=== PATIENT | male | born 1960 | race Two or more races ===

== ENCOUNTER 2021-12-14 10:55 | Day surgery (SDC) | payer MEDICAID ==
[~2021-12-14] VITALS: Ht 165.1 cm; Wt 56.2 kg
[2021-12-14] VITALS (15 sets, daily range): BP systolic 130–167; BP diastolic 61–88
[2021-12-14] MEDS ORDERED: Prednisone PO (11:24)
[2021-12-14] MEDS ORDERED: HYDR-4069 PO (11:24)
[2021-12-14] MEDS ORDERED: normal saline 1000ml 1,000 ML IV PRN (11:25)
[2021-12-14] MEDS ORDERED: FURO-150 PO (11:26)
[2021-12-14] MEDS ORDERED: drisdol PO (11:26)
[2021-12-14] MEDS ORDERED: SODI650T29 PO (11:26)
[2021-12-14 11:49] LABS: BASOPHILS # (AUTO) 0.1 X10'3 (0-0.2); BASOPHILS % (AUTO) 0.8 % (0-1); EOSINOPHILS # (AUTO) 0.2 X10'3 (0-0.9); EOSINOPHILS % (AUTO) 1.7 % (0-6); HEMATOCRIT 30.2 % (42.0-52.0); LYMPHOCYTES # (AUTO) 1.8 X10'3 (1.1-4.8); LYMPHOCYTES % (AUTO) 16.5 % (21-51); MEAN CORPUSCULAR HEMOGLOBIN 27.6 PG (27.0-31.0); MEAN CORPUSCULAR VOLUME 83.7 FL (78-98); MEAN PLATELET VOLUME 6.7 FL (7.4-10.4); MONOCYTES # (AUTO) 0.8 X10'3 (0-0.9); MONOCYTES % (AUTO) 7.7 % (2-12); NEUTROPHILS % (AUTO) 73.3 % (42-75); PLATELET COUNT 250 X10'3 (140-440); RED BLOOD COUNT 3.61 X10'6 (4.70-6.10); RED CELL DISTRIBUTION WIDTH 17.4 % (11.5-14.5)
[2021-12-14 11:56] LABS: ANION GAP 14 (8-16); BLOOD UREA NITROGEN 37 MG/DL (7-18); BUN/CREATININE RATIO 8.4 (5.4-32.0); CALCIUM 9.1 MG/DL (8.5-10.1); CHLORIDE 108 MMOL/L (99-107); CREATININE 4.42 MG/DL (0.60-1.10); GLUCOSE 107 MG/DL (70-104); POTASSIUM 4.3 MMOL/L (3.5-5.1); SODIUM 141 MMOL/L (135-145); eGFR 14 ML/MIN
[2021-12-14] MEDS ORDERED: gelatin sponge, absorbable (Gelfoam 12-7MM) sponge TP ONE (12:35)
[2021-12-14] MEDS ORDERED: fentaNYL/PF 50MCG/1 ML 2ML syringe ONE (12:36)
[2021-12-14] MEDS ORDERED: midazolam 1 mg/ML 2ml injection ONE (12:36)
[2021-12-14] MEDS ORDERED: sodium chloride 0.45% 1,000 ML IV SCH (13:25)
--- NOTE | 2021-12-14 13:45 | NUR ---
Spoke with Dr. Arreola to clarify discharge instructions and IV solution. Ok to continue with NS and DC 1/2 NS. No need to call prior to discharge. If Vital signs stable and no s/s bleeding, patient may be discharge home at 1630.
== END 2021-12-14 16:25 | disposition home or self-care (01) ==
LOC: SSTAY O 10:55
PROVIDERS: ATTEND Radiology Vascular & Interventional Radiology
DX: R80.9 Proteinuria, unspecified (principal); Z79.01 Long term (current) use of anticoagulants; N19 Unspecified kidney failure; I10 Essential (primary) hypertension; E11.9 Type 2 diabetes mellitus without complications; Z79.899 Other long term (current) drug therapy; Z98.890 Other specified postprocedural states; Z83.3 Family history of diabetes mellitus
CPT/HCPCS: 36415; 50200; 77012; 80048; 82948; 85025; 85610; 99152; 99153; J2250; J3010; J7030; A4615

== ENCOUNTER 2022-03-07 08:42 | Day surgery (SDC) | payer MEDICAID ==
[~2022-03-07] VITALS: Ht 165.1 cm; Wt 56.2 kg
[2022-03-07] VITALS (7 sets, daily range): BP systolic 116–142; BP diastolic 64–84
[~2022-03-07 08:42] MED LIST: AMLO10TA13 PO; COLC0.6C3 PO; DOCUMENT DATE & TIME OF BETA-BLOCKER PO ONE; FURO-150 PO; HYDR-4069 PO; LABE300T4 PO; SODI650T29 PO; ceFAZolin inj. 2,000 MG in dextrose 5%-water 100 ML IV ONE; famotidine 20mg tablet PO ONE; ringers solution, lacted 1,000 ML IV SCH
[2022-03-07 10:00] LABS: BASOPHILS # (AUTO) 0.1 X10'3 (0-0.2); EOSINOPHILS # (AUTO) 0.1 X10'3 (0-0.9); EOSINOPHILS % (AUTO) 1.3 % (0-6); HEMATOCRIT 23.9 % (42.0-52.0); HEMOGLOBIN 7.8 g/dl (14.0-17.9); LYMPHOCYTES # (AUTO) 1.9 X10'3 (1.1-4.8); LYMPHOCYTES % (AUTO) 19.6 % (21-51); MEAN CORPUSCULAR HEMOGLOBIN 29.3 PG (27.0-31.0); MEAN CORPUSCULAR HGB CONC 32.4 g/dL (33.0-36.5); MEAN CORPUSCULAR VOLUME 90.4 FL (78-98); MEAN PLATELET VOLUME 7.4 FL (7.4-10.4); MONOCYTES # (AUTO) 0.9 X10'3 (0-0.9); NEUTROPHILS # (AUTO) 6.6 X10'3 (1.8-7.7); NEUTROPHILS % (AUTO) 69.1 % (42-75); PLATELET COUNT 225 X10'3 (140-440); RED BLOOD COUNT 2.65 X10'6 (4.70-6.10); RED CELL DISTRIBUTION WIDTH 17.6 % (11.5-14.5); WHITE BLOOD COUNT 9.5 X10'3 (4.5-11.0)
[2022-03-07 10:17] LABS: ALANINE AMINOTRANSFERASE 12 U/L (12-78); ALBUMIN/GLOBULIN RATIO 0.8 (1.1-1.5); ALKALINE PHOSPHATASE 76 IU/L (46-116); ANION GAP 16 (8-16); ASPARTATE AMINO TRANSFERASE 12 U/L (10-37); BILIRUBIN,TOTAL 0.3 MG/DL (0.1-1.0); BLOOD UREA NITROGEN 50 MG/DL (7-18); BUN/CREATININE RATIO 7.8 (5.4-32.0); CALCIUM 9.1 MG/DL (8.5-10.1); CHLORIDE 105 MMOL/L (99-107); CREATININE 6.38 MG/DL (0.60-1.10); GLUCOSE 115 MG/DL (70-104); POTASSIUM 3.8 MMOL/L (3.5-5.1); SODIUM 141 MMOL/L (135-145); TOTAL CARBON DIOXIDE 20.3 MMOL/L (24-32); eGFR 9 ML/MIN
[2022-03-07] MEDS ORDERED: BUPIVAcaine/PF 2.5 mg/ml (0.25%) 30ml vial ONE (10:56)
[2022-03-07] MEDS ORDERED: heparin 10,000 units/1 ML INJ ONE (10:56)
[2022-03-07] MEDS ORDERED: LIDOcaine 1% 30ml preserv. free vial ONE (10:56)
[2022-03-07] MEDS ORDERED: fentaNYL/PF 50MCG/1 ML 2ML syringe ONE (11:35)
[2022-03-07] MEDS ORDERED: propofol inj 20 ML IV ONE (11:35)
[2022-03-07] MEDS ORDERED: midazolam 1 mg/ML 2ml injection ONE (11:35)
[2022-03-07] MEDS ORDERED: sevoflurane 250ml liquid IH ONE (11:38)
[2022-03-07] MEDS ORDERED: proCHLORperazine 10 MG/2 ml inj IV PRN (11:40)
[2022-03-07] MEDS ORDERED: morphine 2 MG/ML inj. syringe IV PRN (11:40)
[2022-03-07] MEDS ORDERED: ringers solution, lacted 1,000 ML IV SCH (11:40)
[2022-03-07] MEDS ORDERED: ondansetron/PF 4mg/2ml inj IV PRN (11:40)
[2022-03-07] MEDS ORDERED: morphine 4 MG/ML inj SYRINge IV PRN (11:40)
[2022-03-07] MEDS ORDERED: meperidine/PF 25mg/ml syringe IV PRN ×3 (11:40)
--- NOTE | 2022-03-07 12:25 | NUR ---
patient a&ox4, norco given for pain, v/s wnl, csm intact, scd off, dermabond surgical clear clean and dry left forarm, 20g rue d/c. patient d/c home with all belongings and verbalized understanding of d/c instructions. his son gave transport home. Addendum: 03/07/22 at 1717 by Luther Garcia RN WRONG TIME
--- NOTE | 2022-03-07 12:45 | NUR ---
Received from OR via , accompanied by Anesthesiologist and report given by Anesthesiolgist. patient waking up denies pain, v/s wnl, csm intact, scd on, dermabond surgical clear clean and dry left forarm, 20g rue
[2022-03-07] MEDS ORDERED: HYDROcodone/acetaminophen 10/325mg tab PO ONE (13:20)
--- NOTE | 2022-03-07 13:25 | NUR ---
patient a&ox4, norco given for pain, v/s wnl, csm intact, scd off, dermabond surgical clear clean and dry left forarm, 20g rue d/c. patient d/c home with all belongings and verbalized understanding of d/c instructions. his son gave transport home.
== END 2022-03-07 13:25 | disposition home or self-care (01) ==
LOC: PAS 08:42
PROVIDERS: ATTEND Surgery
DX: N19 Unspecified kidney failure (principal); E11.9 Type 2 diabetes mellitus without complications; M19.90 Unspecified osteoarthritis, unspecified site; M10.9 Gout, unspecified; I10 Essential (primary) hypertension; Z87.891 Personal history of nicotine dependence; Z72.89 Other problems related to lifestyle; Z79.899 Other long term (current) drug therapy; Z98.890 Other specified postprocedural states
CPT/HCPCS: 36415; 36821; 80053; 82948; 85025; 93005; J0690; J1644; J2250; J2704; J3010; J3490; J7030; J7040; J7060; J7120; Z7506; Z7508; Z7512; A4215; A4618; A7000

== ENCOUNTER 2022-05-04 06:23 | Day surgery (SDC) | payer MEDICAID ==
[~2022-05-04] VITALS: Ht 165.1 cm; Wt 59.0 kg
[~2022-05-04 06:23] MED LIST changes: -DOCUMENT DATE & TIME OF BETA-BLOCKER PO ONE; -ceFAZolin inj. 2,000 MG in dextrose 5%-water 100 ML IV ONE; -famotidine 20mg tablet PO ONE; -ringers solution, lacted 1,000 ML IV SCH
[2022-05-04] MEDS ORDERED: normal saline 1000ml 1,000 ML IV PRN (06:50)
[2022-05-04] MEDS ORDERED: DOCU-148 PO (06:55)
[2022-05-04] MEDS ORDERED: HYDR-3965 PO (06:56)
[2022-05-04 07:00] VITALS: BP 148/73
[2022-05-04] MEDS ORDERED: METO-411 PO (07:00)
[2022-05-04] MEDS ORDERED: VITAMIN D (07:02)
[2022-05-04] MEDS ORDERED: ONDA4TAB12 PO (07:04)
[2022-05-04 07:20] LABS: BASOPHILS # (AUTO) 0.1 X10'3 (0-0.2); BASOPHILS % (AUTO) 0.5 % (0-1); EOSINOPHILS # (AUTO) 0.1 X10'3 (0-0.9); EOSINOPHILS % (AUTO) 0.9 % (0-6); HEMATOCRIT 23.9 % (42.0-52.0); HEMOGLOBIN 7.6 g/dl (14.0-17.9); LYMPHOCYTES # (AUTO) 1.6 X10'3 (1.1-4.8); LYMPHOCYTES % (AUTO) 13.7 % (21-51); MEAN CORPUSCULAR HGB CONC 31.7 g/dL (33.0-36.5); MEAN CORPUSCULAR VOLUME 88.2 FL (78-98); MONOCYTES # (AUTO) 0.9 X10'3 (0-0.9); MONOCYTES % (AUTO) 7.3 % (2-12); NEUTROPHILS # (AUTO) 9.1 X10'3 (1.8-7.7); NEUTROPHILS % (AUTO) 77.6 % (42-75); PLATELET COUNT 245 X10'3 (140-440); RED BLOOD COUNT 2.71 X10'6 (4.70-6.10); RED CELL DISTRIBUTION WIDTH 15.7 % (11.5-14.5); WHITE BLOOD COUNT 11.7 X10'3 (4.5-11.0)
[2022-05-04 07:31] LABS: ANION GAP 15 (8-16); BLOOD UREA NITROGEN 56 MG/DL (7-18); BUN/CREATININE RATIO 9.8 (5.4-32.0); CALCIUM 8.3 MG/DL (8.5-10.1); CHLORIDE 106 MMOL/L (99-107); CREATININE 5.73 MG/DL (0.60-1.10); GLUCOSE 131 MG/DL (70-104); POTASSIUM 4.6 MMOL/L (3.5-5.1); SODIUM 138 MMOL/L (135-145); TOTAL CARBON DIOXIDE 17.1 MMOL/L (24-32); eGFR 10 ML/MIN
[2022-05-04] MEDS ORDERED: heparin 1,000 UNITS/NS 500ml 500 ML ONE ×2 (08:24→09:45)
[2022-05-04] MEDS ORDERED: midazolam 1 mg/ML 2ml injection ONE ×2 (08:24→09:37)
[2022-05-04] MEDS ORDERED: FENTANYL CITRATE/PF 50 MCG/1 ML VIAL ONE ×3 (08:24→09:37)
[2022-05-04] MEDS ORDERED: iohexol 300mg/ml 100ml inj. ONE ×2 (08:24→08:33)
[2022-05-04] MEDS ORDERED: LIDOcaine 1% 30ml preserv. free vial ONE (08:25)
[2022-05-04 10:38] VITALS: BP 141/71
[2022-05-04 10:53] VITALS: BP 137/71
[2022-05-04 11:08] VITALS: BP 140/70
[2022-05-04 11:20] VITALS: BP 141/75
== END 2022-05-04 11:30 | disposition home or self-care (01) ==
LOC: SSTAY O 06:23
PROVIDERS: ATTEND Radiology Vascular & Interventional Radiology
DX: T82.590A Other mechanical complication of surgically created arteriovenous fistula, initial encounter (principal); I12.9 Hypertensive chronic kidney disease with stage 1 through stage 4 chronic kidney disease, or unspecified chronic kidney disease; E11.22 Type 2 diabetes mellitus with diabetic chronic kidney disease; N18.9 Chronic kidney disease, unspecified; Z83.3 Family history of diabetes mellitus; Z87.891 Personal history of nicotine dependence; Z79.899 Other long term (current) drug therapy; Y83.8 Other surgical procedures as the cause of abnormal reaction of the patient, or of later complication, without mention of misadventure at the time of the procedure
CPT/HCPCS: 36415; 36901; 36909; 80048; 82948; 85025; 85610; 99152; 99153; C1769; C1894; J1644; J2250; J3010; J3490; J7030; Q9967; A4620

== ENCOUNTER 2022-08-03 10:15 | Outpatient (CLI) | payer MEDICAID ==
[~2022-08-03 10:15] MED LIST changes: -COLC0.6C3 PO; +DOCU-148 PO; +HYDR-3965 PO; -LABE300T4 PO; +METO-411 PO; +ONDA4TAB12 PO; +VITAMIN D
== END 2022-08-03 23:59 | disposition home or self-care (01) ==
LOC: VAS 10:15
PROVIDERS: ATTEND Surgery
DX: I77.0 Arteriovenous fistula, acquired (principal)
CPT/HCPCS: 93990